=== PATIENT | male | born 1980 | race Caucasian/White ===

== ENCOUNTER 2019-01-16 06:57 | Emergency (ER) | payer OTHER ==
[~2019-01-16] VITALS: Ht 182.9 cm; Wt 127.0 kg
[2019-01-16 07:06] VITALS: BP 142/95
[2019-01-16] MEDS ORDERED: VENTOLIN HFA 1818 GM INH (07:10)
[2019-01-16] MEDS ORDERED: IPRAT-ALBUT 0.5-3 ML INH (07:23)
== END 2019-01-16 07:40 | disposition home or self-care (01) ==
LOC: M.ERS 06:57
DX: J45.909 Unspecified asthma, uncomplicated (principal); F17.210 Nicotine dependence, cigarettes, uncomplicated; Z88.8 Allergy status to other drugs, medicaments and biological substances